=== PATIENT | male | born 1960 | race Caucasian/White ===

== ENCOUNTER 2019-05-25 15:32 | Inpatient (IN) | payer OTHER ==
[~2019-05-25] VITALS: Ht 177.8 cm; Wt 94.4 kg
[2019-05-25] MEDS ORDERED: HEPARIN 25,000 UNITS/500ML PMX 500 ML ONE (15:37)
--- NOTE | 2019-05-25 15:51 | NUR ---
59 Y/O MALE BIB AMBULANCE FROM [facility] [place] WITH C/O LEFT LEG DVT. PER REPORT PT HAD US AND IT SHOWED DVT FROM "HIP ALL THE WAY DOWN" PT ARRIVES ON HEPARIN DRIP RUNNING AT 1450 UNITS/H OR 29 ML/HR. PER PT "I GOT AN INFECTION IN MY LEG ABOUT 2-3 WEEKS AGO. I WAS ON ABX. THEN THE SWELLING STARTED AGAIN ABOUT SAT OR SATURDAY. I GOT THE ULTRASOUND DONE TODAY AND WAS SENT TO THE HOSPITAL." PT PLACED ON CONT PULSE OX,NIBP. NADN. 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 NO C/O N/V/D, SYNCOPE, SOB, CP.
[2019-05-25] MEDS ORDERED: SODIUM CHLORIDE FLUSH 10ML SYR IVF ONE (16:30)
[2019-05-25] MEDS ORDERED: CEFTRIAXONE PMX 1GM/50ML 50 ML IVPB ONE (16:30)
[2019-05-25 17:02] LABS: BASOPHILS # (AUTO) 0.04 x10^3/uL (0-0.1); BASOPHILS % (AUTO) 0 % (0-1); EOSINOPHILS # (AUTO) 0.46 x10^3/uL (0-0.4); EOSINOPHILS % (AUTO) 4 % (1-7); LYMPHOCYTES % (AUTO) 16 % (22-44); MD NO; MEAN CORPUSCULAR HEMOGLOBIN 33.5 pg (27.5-34.5); MEAN CORPUSCULAR HGB CONC 33.4 g/dL (33.2-36.2); MEAN CORPUSCULAR VOLUME 100.3 fL (81-97); MEAN PLATELET VOLUME 7.9 fL (7.4-10.4); MONOCYTES # (AUTO) 0.96 x10^3/uL (0.2-0.8); MONOCYTES % (AUTO) 8 % (2-9); NEUTROPHILS # (AUTO) 8.27 x10^3/uL (1.8-6.8); NEUTROPHILS % (AUTO) 71 % (42-75); PLATELET COUNT 238 x10^3/uL (130-400); RED BLOOD COUNT 4.66 x10^6/uL (4.38-5.82); RED CELL DISTRIBUTION WIDTH 12.8 % (9.4-14.8)
[2019-05-25 17:14] LABS: ALANINE AMINOTRANSFERASE 24 U/L (12-78); ALBUMIN 3.4 g/dL (3.4-5.0); ANION GAP 9 mmol/L (5-15); CHLORIDE 105 mmol/L (98-107); CREATININE 0.97 mg/dL (0.7-1.3); INTERNATIONAL NORMALIZED RATIO 1.08 (0.93-1.1); PROTHROMBIN TIME 11.3 Seconds (9.6-11.5)
[2019-05-25 17:18] LABS: ALKALINE PHOSPHATASE 96 U/L (45-117); BILIRUBIN,TOTAL 1.5 mg/dL (0.2-1.0); TOTAL PROTEIN 7.5 g/dL (6.4-8.2)
--- NOTE | 2019-05-25 18:08 | NUR ---
LATE ENTRY FOR 1700: PT RESTING ON FUNMILAYO MONREAL. FAMILY BEDSIDE. NO NEEDS REQUESTED AT THIS TIME.
--- NOTE | 2019-05-25 18:09 | NUR ---
SECOND PIV ESTABLISHED. PT TOLERATED WITH NO COMPLICATIONS. PT BEING TAKEN TO IMAGING. FAMILY BEDSIDE. RAH
[2019-05-25] MEDS ORDERED: OMNIPAQUE 350 MG/ML, 100ML BOTTLE ONE (18:21)
[2019-05-25] MEDS ORDERED: HYDR50TA3 PO (18:22)
[2019-05-25] MEDS ORDERED: PRED20TA PO (18:22)
[2019-05-25] MEDS ORDERED: ALBU18HF INH (18:22)
[2019-05-25] MEDS ORDERED: FLUT1BLS INH (18:22)
[2019-05-25] MEDS ORDERED: LISI-170 PO (18:22)
[2019-05-25] MEDS ORDERED: INDO50CA15 PO (18:22)
--- NOTE | 2019-05-25 18:22 | NUR ---
PATIENT BACK FROM IMAGING.
[2019-05-25] MEDS ORDERED: CEFTRIAXONE PMX 1GM/50ML 50 ML ONE (18:37)
[2019-05-25] MEDS ORDERED: SODIUM CHLORIDE FLUSH 10ML SYR IVF PRN (19:00)
--- NOTE | 2019-05-25 19:25 | NUR ---
REPORT TO XIOMARA LOPES.
[2019-05-25] MEDS ORDERED: HEPARIN 5,000 UNITS/ML, 1ML IV ONE (19:30)
--- NOTE | 2019-05-25 19:31 | NUR ---
PT LEFT WITH ALL PERSONAL BELONGINGS. PT TRANSFERRED TO FLOOR.
[2019-05-25 19:42] VITALS: BP 141/85
[2019-05-25] MEDS ORDERED: OXYcodone/APAP 5/325MG TABLET PO ONE (20:30)
[2019-05-25] MEDS ORDERED: TEMAZEPAM 15 MG CAPSULE PO PRN (23:00)
[2019-05-25] MEDS ORDERED: ONDANSETRON 2MG/ML, 2ML IVPush PRN (23:00)
[2019-05-25] MEDS ORDERED: DOCUSATE 100 MG CAPSULE PO PRN (23:00)
[2019-05-25] MEDS ORDERED: ENALAPRILAT 1.25 MG/ML, 2ML IVPush PRN (23:00)
[2019-05-25] MEDS ORDERED: ACETAMINOPHEN 325 MG TABLET PO PRN (23:00)
[2019-05-26 00:58] VITALS: BP 125/80
[2019-05-26 02:47] LABS: BASOPHILS # (AUTO) 0.04 x10^3/uL (0-0.1); BASOPHILS % (AUTO) 0 % (0-1); EOSINOPHILS # (AUTO) 0.59 x10^3/uL (0-0.4); EOSINOPHILS % (AUTO) 6 % (1-7); LYMPHOCYTES # (AUTO) 2.32 x10^3/uL (1-3.4); LYMPHOCYTES % (AUTO) 23 % (22-44); MD NO; MEAN CORPUSCULAR HEMOGLOBIN 33.7 pg (27.5-34.5); MEAN CORPUSCULAR HGB CONC 33.4 g/dL (33.2-36.2); MEAN CORPUSCULAR VOLUME 100.9 fL (81-97); MEAN PLATELET VOLUME 7.8 fL (7.4-10.4); MONOCYTES # (AUTO) 1.16 x10^3/uL (0.2-0.8); MONOCYTES % (AUTO) 11 % (2-9); NEUTROPHILS % (AUTO) 60 % (42-75); PLATELET COUNT 228 x10^3/uL (130-400); RED CELL DISTRIBUTION WIDTH 12.5 % (9.4-14.8)
[2019-05-26 02:53] LABS: ANION GAP 6 mmol/L (5-15); CALCIUM 8.7 mg/dL (8.5-10.1); CHLORIDE 105 mmol/L (98-107); CREATININE 1.17 mg/dL (0.7-1.3)
[2019-05-26] MEDS: HEPARIN 5,000 UNITS/ML, 1ML IV PRN ×3 (03:07→17:21)
[2019-05-26] MEDS: ALBUTEROL SULFATE 2.5 MG/3 ML NPPB SCH ×4 (03:13→21:13)
[2019-05-26 08:19] VITALS: BP 131/83
[2019-05-26] MEDS: HYDROCHLOROTHIAZIDE 25 MG TABLET PO SCH (08:31)
[2019-05-26] MEDS ORDERED: LISINOPRIL 20 MG TABLET PO SCH (09:00)
[2019-05-26] MEDS: BUDESONIDE 0.5 MG/2 ML INHA NPPB SCH ×2 (09:00→21:13)
[2019-05-26] MEDS: HEPARIN 25,000 UNITS/500ML PMX 500 ML IV PRN (10:55)
[2019-05-26 12:15] VITALS: BP 93/58
[2019-05-26 17:49] VITALS: BP 95/58
[2019-05-26 19:35] VITALS: BP 84/50
[2019-05-26 20:54] VITALS: BP 97/57
[2019-05-27 00:59] VITALS: BP 94/57
[2019-05-27] MEDS: ALBUTEROL SULFATE 2.5 MG/3 ML NPPB SCH ×4 (04:10→19:57)
[2019-05-27] MEDS: HEPARIN 25,000 UNITS/500ML PMX 500 ML IV PRN ×2 (04:15→22:25)
[2019-05-27] MEDS: BUDESONIDE 0.5 MG/2 ML INHA NPPB SCH ×2 (06:33→19:57)
[2019-05-27 06:55] VITALS: BP 121/67
[2019-05-27] MEDS ORDERED: ALBUTEROL SULFATE 2.5 MG/3 ML ONE (08:25)
[2019-05-27] MEDS: HYDROCHLOROTHIAZIDE 25 MG TABLET PO SCH (08:58)
[2019-05-27] MEDS: LISINOPRIL 20 MG TABLET PO SCH (08:58)
[2019-05-27 12:57] VITALS: BP 111/68
[2019-05-27 20:12] VITALS: BP 124/73
[2019-05-28 00:11] VITALS: BP 120/65
[2019-05-28] MEDS: ALBUTEROL SULFATE 2.5 MG/3 ML NPPB SCH ×2 (03:00→06:57)
[2019-05-28] MEDS: HEPARIN 5,000 UNITS/ML, 1ML IV PRN (05:46)
[2019-05-28] MEDS: BUDESONIDE 0.5 MG/2 ML INHA NPPB SCH (06:57)
[2019-05-28] MEDS: HYDROCHLOROTHIAZIDE 25 MG TABLET PO SCH (08:44)
[2019-05-28] MEDS: LISINOPRIL 20 MG TABLET PO SCH (08:45)
[2019-05-28 08:58] VITALS: BP 109/68
[2019-05-28 09:00] VITALS: BP 111/78
[2019-05-28] MEDS ORDERED: APIXABAN 5 MG TABLET PO SCH ×2 (10:00→21:00)
[2019-05-28] MEDS ORDERED: APIX5TAB PO (10:03)
[2019-05-28] MEDS ORDERED: TRAM50TA2 PO (10:04)
[2019-05-28] MEDS ORDERED: FLU VACC QS2019-20 36MOS UP/PF 0.5 ML IM-VACC ONE (11:30)
== END 2019-05-28 14:55 | disposition home or self-care (01) | DRG 299 ==
LOC: ED 17:29 → 4EST 20:07 → DCLOUNGE 05-28 14:44
PROVIDERS: ADMIT Internal Medicine; ATTEND Internal Medicine
DX: I82.402 Acute embolism and thrombosis of unspecified deep veins of left lower extremity (principal); I26.99 Other pulmonary embolism without acute cor pulmonale; D68.59 Other primary thrombophilia; L03.116 Cellulitis of left lower limb; Z88.0 Allergy status to penicillin; F17.200 Nicotine dependence, unspecified, uncomplicated; I10 Essential (primary) hypertension; J45.909 Unspecified asthma, uncomplicated
CPT/HCPCS: 36415; 96365; 99285; J7613; J7626; 71275; 80048; 80053; 83605; 83880; 85025; 85520; 85610; 85730; 87040; 90686; 93005; 93306; 94640; G0378; J0696; J1644; Q9967; J7512